=== PATIENT | female | born 1960 | race African-American/Black ===

== ENCOUNTER 2022-04-10 08:42 | Outpatient (CLI) | payer OTHER, SELFPAY ==
--- NOTE | 2022-04-10 | ECG_ITS ---
Measurements Intervals [place] Rate: 79 P: 71 [place]: 213 QRS: 12 QRSD: 92 T: 73 QT: 357 QTc: 410 Interpretive Statements SINUS RHYTHM WITH FIRST DEGREE AV BLOCK BORDERLINE ECG NO PREVIOUS ECG AVAILABLE FOR COMPARISON Electronically Signed On 04-10-2022 14:07:29 ORTHOPEDIC RN by Harjinder Chavez M.D.
== END 2022-04-10 08:43 | disposition home or self-care (01) ==
PROVIDERS: PCP Physician Assistant; Visit Provider Physician Assistant
DX: R00.2 Palpitations (principal); I44.0 Atrioventricular block, first degree
CPT/HCPCS: 93005

== ENCOUNTER 2023-07-16 09:37 | Outpatient (CLI) | payer OTHER, SELFPAY ==
--- NOTE | ~2023-07-16 | US_ITS ---
EXAMINATION: US thyroid DATE: 07/16/2023 10:17 INDICATION: Iodine deficiency related diffuse endemic goiter. TECHNIQUE: Multiple ultrasound images of the thyroid were obtained. COMPARISON: None. FINDINGS: The right thyroid lobe measures 5.7 x 1.1 x 1.5 cm. The left thyroid lobe measures 5.1 x 1.3 x 1.7 c m. In the left thyroid lobe, there is a 6 mm solid, hypoechoic, wider than tall nodule with smooth m argin without echogenic foci (TI-RADS TR4). IMPRESSION: 1. Small thyroid nodule, likely not clinically significant. No follow-up is needed. Reviewed, dictated and finalized at location E. [facility] [employer] IMPRESSION: 1. Small thyroid nodule, likely not clinically significant. No follow-up is nee ded.
== END 2023-07-16 09:38 | disposition home or self-care (01) ==
PROVIDERS: PCP Family Medicine; Visit Provider Physician Assistant
DX: E01.0 Iodine-deficiency related diffuse (endemic) goiter (principal)
CPT/HCPCS: 76536